=== PATIENT | male | born 1940 | race Caucasian/White ===

== ENCOUNTER → 2020-12-01 13:59 | Outpatient (CLI) | payer MEDICARE, OTHER, SELFPAY ==
--- NOTE | 2020-12-01 14:05 | DI.MRI.S_ITS ---
PROCEDURE: MR LUMBAR SPINE WO CON INDICATIONS: Spondylosis without myelopathy or radiculopathy TECHNIQUE: Noncontrast sagittal T1 spin echo and T2 fast echo, sagittal STIR, axial T1 and T2 fast spin echo through the lumbar spine. In cases with scoliosis, additional coronal T2 fast spin echo may be performed. COMPARISON: [facility], MR, MR LUMBAR SPINE WITHOUT CONTRAST, 02/11/2018, 17:14. [facility] Hana Sumner, RF, LUMBAR RHIZOTOMY, 10/05/2020, 16:00. [facility] [place], CR, XR LUMBAR SPINE 2 OR 3 VIEWS, 09/16/2020, 15:43. FINDINGS: Image quality: This examination is limited by involuntary motion artifact. Alignment and Curvature: There is [id number] dextroconvex lumbar scoliosis. Mild retrolisthesis is seen at L1-L2 and L2-L3, with minimal retrolisthesis seen at L3-L4. Bone Marrow: Marrow is of normal overall signal. No acute vertebral body compression fractures. Spinal Cord: Conus medullaris terminates at the L1 level. Visualized cord demonstrates normal signal and size. Paraspinous Soft Tissues: No paravertebral masses. T12-L1: The disc height and disc signal are relatively well preserved. Mild disc bulge is seen, which is eccentric to the left. There is mild left-sided and no significant right-sided neural foraminal narrowing seen. No significant central canal narrowing is seen. L1-L2: Mild loss of disc height is seen. Loss of disc signal is seen. Moderate generalized disc bulge is seen. Mild facet joint hypertrophy is seen. There is at least moderate bilateral neural foraminal narrowing seen, left worse than right. A mild degree of compression can be seen upon the exiting nerve roots. Mild central canal narrowing is seen. L2-L3: [id number] loss of disc height and disc signal can be seen. Moderate generalized disc bulge is seen. Mild facet joint hypertrophy is seen. At least moderate bilateral neural foraminal narrowing can be seen. Moderate central canal narrowing is seen. L3-L4: The disc height is well-preserved. Loss of disc signal is seen at this level. Moderate disc bulge is seen, with a central disc protrusion. Mild to moderate facet hypertrophy is seen at this level. There is moderate left-sided and moderate to severe right-sided neural foraminal narrowing seen. There is a degree of compression seen upon the exiting right L3 nerve root. Moderate central canal narrowing is seen. L4-L5: The disc height is well-preserved. Loss of disc signal is seen at this level. Moderate to prominent disc bulge is seen, which is eccentric to the right. There is moderate to prominent right-sided and moderate left-sided neural foraminal narrowing seen. There is moderate left-sided and moderate to severe right-sided neural foraminal narrowing seen. There is a degree of compression seen upon the exiting right L4 nerve root. Moderate to severe central canal narrowing is seen. L5-S1: Mild loss of disc height is seen. Loss of disc signal is seen. Moderate disc bulge is seen, which is eccentric to the right side. Posteriorly directed endplate osteophytes are seen on the right side, with an associated disc protrusion. Moderate facet joint hypertrophy is seen. There is moderate left-sided and moderate to severe right-sided neural foraminal narrowing seen. Moderate central canal narrowing is seen. IMPRESSION: Multiple levels of lumbar spine degenerative change are seen, which are overall mildly progressed compared to 2018. Kzof-hk-[id number] dextroconvex scoliosis. Dictated by: Vishal Bearden M.D. on 12/02/2020 at 10:36 Approved by: Vishal Bearden M.D. on 12/02/2020 at 10:43
== END ==
PROVIDERS: Referring Provider Physical Medicine & Rehabilitation; Visit Provider Physical Medicine & Rehabilitation
DX: M47.816 Spondylosis without myelopathy or radiculopathy, lumbar region (principal); M47.817 Spondylosis without myelopathy or radiculopathy, lumbosacral region; M41.86 Other forms of scoliosis, lumbar region
CPT/HCPCS: 72148

== ENCOUNTER 2024-11-25 04:37 | Emergency (ER) | payer MEDICARE, SELFPAY ==
[2024-11-25] VITALS (17 sets, daily range): BP systolic 82–107; BP diastolic 51–65; PULSE 61–69; RESP 17–35; TEMP 36.4; O2SAT 94–98; BMI 21.9
--- NOTE | 2024-11-25 04:40 | DI.RAD.S_ITS ---
PROCEDURE: XR CHEST 1V INDICATIONS: chest pain TECHNIQUE: One view of the chest was acquired. COMPARISON: None. FINDINGS: Surgical changes and devices: Prosthetic aortic valve is seen. Lungs and pleura: Small airspace opacity in right infrahilar region is seen. Left lung is clear. No pleural effusions or pneumothorax. Mediastinum: Tortuous thoracic aorta with aortic arch calcifications. Heart size is normal. Bones and chest wall: No suspicious bony lesions. Overlying soft tissues appear unremarkable. IMPRESSION: Finding is concerning for right infrahilar infiltrate. Clinical correlation and follow-up is recommended. No pleural effusion or pneumothorax. No discrepancies. Dictated by: Maurilio Bobby M.D. on 11/25/2024 at 8:08 Approved by: Maurilio Bobby M.D. on 11/25/2024 at 8:09
--- NOTE | 2024-11-25 04:41 | EKG_ITS ---
[place] [id number] [place] [id number] Test Date: 2024-11-25 Pat Name: MACKENZIE MORRISON Department: [facility] Room: Gender: Male Client Executive: MIROSLAVA Rogers : 1940 Requested By: Order Number: [id number] Reading MD: Mackenzie Arreaga MD Measurements Intervals [place] Rate: 67 P: 54 SC: 170 QRS: -54 QRSD: 130 T: 50 QT: 440 QTc: 464 Interpretive Statements Normal sinus rhythm Right bundle branch block Left anterior fascicular block Bifascicular block Possible Lateral infarct , age undetermined NO PRIOR TRACING Electronically Signed On 11-25-2024 6:47:31 PDT by Mackenzie Arreaga MD
--- NOTE | 2024-11-25 04:43 | ED.CHESTPAIN ---
HPI - Chest Pain <Maryse Boston DO - Last Filed: 12/01/24 08:18> General Chief Complaint: Chest Pain Stated Complaint: chest pain Time Seen by Provider: 11/25/24 04:40 History of Present Illness HPI narrative: Patient 84-year-old male history of acute coronary disease with stents hyperlipidemia hypertension, presenting today with chest pain. [facility] they got infected. He has no history of diabetes. This evening he woke up with pretty severe chest pain. Nonradiating denies any shortness of breath. EMS did give him aspirin 325 and 1 nitro prior to arrival. He reports he did have some improvement with nitroglycerin. He denies any fever chills nausea vomiting shortness of breath or abdominal pain. He he recently just cast foot and missing toes Related Data Allergies Allergy/AdvReac Type Severity Reaction Status Date / Time No Known Drug Allergies Allergy Verified 11/25/24 09:00 Review of Systems <Alexander White MD - Last Filed: 11/26/24 07:45> Review of Systems Narrative: GENERAL: Negative chills, fatigue, malaise, fever, sweats. HEENT: Negative sinus pain, ear pain, sore throat RESPIRATORY: Negative dyspnea, cough CARDIOVASCULAR: Positive chest pain, negative palpitations GASTROINTESTINAL: Negative vomiting, nausea, abdominal pain : Negative dysuria, frequency, hematuria MUSCULOSKELETAL: Negative muscle or bony pain SKIN: Negative rash, skin lesions NEUROLOGIC: Negative weakness, numbness ROS Unobtainable: All systems reviewed & are unremarkable except as noted in HPI and below Exam <Maryse Boston DO - Last Filed: 12/01/24 08:18> Initial Vital Signs Initial Vital Signs: Vital Signs Temperature 97.6 F 11/25/24 04:39 Pulse Rate 68 11/25/24 04:39 Respiratory Rate 17 11/25/24 04:39 Blood Pressure 101/65 11/25/24 04:39 Pulse Oximetry 96 11/25/24 04:39 Oxygen Delivery Method Room Air 11/25/24 04:39 GENERAL: Alert 84-year-old female HEENT: Head atraumatic,EOMI, pupils reactive, face symmetric, moist mucous membranes CARDIOVASCULAR: Regular rate and rhythm without murmurs, rubs or gallops. RESPIRATORY: Breath sounds equal bilaterally, no wheezes rales or rhonchi. ABDOMEN: Soft, nontender. Normoactive bowel sounds all 4 quadrants. No guarding or rebound. EXTREMITIES: Normal range of motion, no clubbing or edema. Neurovascularly intact NEUROLOGICAL: Alert and oriented x4.Normal gait and speech. C SKIN: Warm, dry, no laceration, no petechiae, no rashes or lesions. <Alexander White MD - Last Filed: 11/26/24 07:45> Initial Vital Signs Initial Vital Signs: Vital Signs Temperature 97.6 F 11/25/24 04:39 Pulse Rate 68 11/25/24 04:39 Respiratory Rate 17 11/25/24 04:39 Blood Pressure 101/65 11/25/24 04:39 Pulse Oximetry 96 11/25/24 04:39 Oxygen Delivery Method Room Air 11/25/24 04:39 Course <Maryse Boston DO - Last Filed: 12/01/24 08:18> Orders Ordered: Discontinued Medications Heparin Sodium (Porcine) (Heparin 5,000 Unit/Ml Vial) 4,000 unit 60 unit/kg (4000 unit) IV NOW ONE Stop: 11/25/24 08:25 Last Admin: 11/25/24 08:52 Dose: 4,000 unit Documented By: JALEN Sodium Chloride (Normal Saline 0.9%) 1,000 mls @ 1,000 mls/hr IV BOLUS ONE Stop: 11/25/24 07:01 Last Infusion: 11/25/24 07:06 Dose: Infused Documented By: Admin: 11/25/24 06:06 Dose: 1,000 mls/hr Documented By: Heparin Sodium/Dextrose (Heparin Drip) 25,000 unit in 500 mls @ 15.241 mls/hr IV CONT OSORIO; Protocol Last Titration: 11/25/24 10:30 Dose: 12 units/kg/hr, 15.241 mls/hr Documented By: ROBBI Co-signed By: JALEN(2) Admin: 11/25/24 08:53 Dose: 12 units/kg/hr, 15.241 mls/hr Documented By: JALEN Co-signed By: MPO Vital Signs Vital signs: Vital Signs - 8 hr 11/25/24 04:39 11/25/24 04:41 11/25/24 04:42 Temperature 97.6 F Pulse Rate 68 67 Respiratory Rate 17 Blood Pressure 101/65 99/59 L Pulse Oximetry 96 95 Oxygen Delivery Method Room Air 11/25/24 04:42 11/25/24 05:00 11/25/24 05:00 Temperature Pulse Rate 68 64 Respiratory Rate 28 H Blood Pressure 91/54 L Pulse Oximetry 94 97 Oxygen Delivery Method 11/25/24 05:25 11/25/24 05:25 11/25/24 05:30 Temperature Pulse Rate 64 Respiratory Rate 18 Blood Pressure 100/58 L 100/55 L Pulse Oximetry 96 Oxygen Delivery Method 11/25/24 05:30 11/25/24 06:00 11/25/24 06:00 Temperature Pulse Rate 63 61 Respiratory Rate 17 21 Blood Pressure 82/52 L Pulse Oximetry 96 96 Oxygen Delivery Method 11/25/24 06:01 11/25/24 06:01 11/25/24 06:30 Temperature Pulse Rate 69 Respiratory Rate 35 H Blood Pressure 90/53 L 100/55 L Pulse Oximetry 96 Oxygen Delivery Method 11/25/24 06:30 11/25/24 07:00 11/25/24 07:00 Temperature Pulse Rate 64 64 Respiratory Rate 22 20 Blood Pressure 94/53 L Pulse Oximetry 98 97 Oxygen Delivery Method 11/25/24 07:30 11/25/24 07:30 Temperature Pulse Rate 66 Respiratory Rate 17 Blood Pressure 102/51 L Pulse Oximetry 96 Oxygen Delivery Method <Alexander White MD - Last Filed: 11/26/24 07:45> Orders Ordered: Discontinued Medications Heparin Sodium (Porcine) (Heparin 5,000 Unit/Ml Vial) 4,000 unit 60 unit/kg (4000 unit) IV NOW ONE Stop: 11/25/24 08:25 Last Admin: 11/25/24 08:52 Dose: 4,000 unit Documented By: JALEN Sodium Chloride (Normal Saline 0.9%) 1,000 mls @ 1,000 mls/hr IV BOLUS ONE Stop: 11/25/24 07:01 Last Infusion: 11/25/24 07:06 Dose: Infused Documented By: Admin: 11/25/24 06:06 Dose: 1,000 mls/hr Documented By: Heparin Sodium/Dextrose (Heparin Drip) 25,000 unit in 500 mls @ 15.241 mls/hr IV CONT OSORIO; Protocol Last Titration: 11/25/24 10:30 Dose: 12 units/kg/hr, 15.241 mls/hr Documented By: ROBBI Co-signed By: JALEN(2) Admin: 11/25/24 08:53 Dose: 12 units/kg/hr, 15.241 mls/hr Documented By: JALEN Co-signed By: CECY Vital Signs Vital signs: Vital Signs - 8 hr 11/25/24 04:39 11/25/24 04:41 11/25/24 04:42 Temperature 97.6 F Pulse Rate 68 67 Respiratory Rate 17 Blood Pressure 101/65 99/59 L Pulse Oximetry 96 95 Oxygen Delivery Method Room Air 11/25/24 04:42 11/25/24 05:00 11/25/24 05:00 Temperature Pulse Rate 68 64 Respiratory Rate 28 H Blood Pressure 91/54 L Pulse Oximetry 94 97 Oxygen Delivery Method 11/25/24 05:25 11/25/24 05:25 11/25/24 05:30 Temperature Pulse Rate 64 Respiratory Rate 18 Blood Pressure 100/58 L 100/55 L Pulse Oximetry 96 Oxygen Delivery Method 11/25/24 05:30 11/25/24 06:00 11/25/24 06:00 Temperature Pulse Rate 63 61 Respiratory Rate 17 21 Blood Pressure 82/52 L Pulse Oximetry 96 96 Oxygen Delivery Method 11/25/24 06:01 11/25/24 06:01 11/25/24 06:30 Temperature Pulse Rate 69 Respiratory Rate 35 H Blood Pressure 90/53 L 100/55 L Pulse Oximetry 96 Oxygen Delivery Method 11/25/24 06:30 11/25/24 07:00 11/25/24 07:00 Temperature Pulse Rate 64 64 Respiratory Rate 22 20 Blood Pressure 94/53 L Pulse Oximetry 98 97 Oxygen Delivery Method 11/25/24 07:30 11/25/24 07:30 Temperature Pulse Rate 66 Respiratory Rate 17 Blood Pressure 102/51 L Pulse Oximetry 96 Oxygen Delivery Method MDM - Chest Pain <Maryse Boston, - Last Filed: 12/01/24 08:18> Lab Data 11/25/24 04:40 11/25/24 04:40 Labs: Lab Results 11/25/24 11/25/24 11/25/24 Range/Units 04:40 06:40 08:48 WBC 6.5 (4.5-11.0) X10^3/uL RBC 4.42 L (4.5-5.9) X10^6/uL Hgb 11.1 L (13.5-17.5) g/dL Hct 34.7 L (41-53) % MCV 78.4 L (80-100) fL MCH 25.2 L (26-34) PG MCHC 32.1 (30-36) % RDW 20.7 H (11.6-14.8) % Plt Count 504 H (150-400) X10^3/uL Neut % (Auto) 50.7 (50-75) % Lymph % (Auto) 32.2 (25-40) % [place] % (Auto) 13.5 (3-14) % Eos % (Auto) 2.5 (2-4) % Baso % (Auto) 1.1 (0-2) % Neut # (Auto) 3300 (2286-2559) /uL Lymph # (Auto) 2100 (0003-4576) /uL [place] # (Auto) 900 (0-900) /uL Eos # (Auto) 200 (0-450) /uL Baso # (Auto) 100 (0-100) /uL RBC Morphology See below Hypochromasia 1+ H Anisocytosis 1+ H Microcytosis 1+ H Ovalocytes 1+ H APTT 42 H (25.1-36.5) SECONDS Sodium 138 (137-145) mmol/L Potassium 3.9 (3.4-5.1) mmol/L Chloride 102 (98-107) mmol/L Carbon Dioxide 24 (22-32) mmol/L BUN 19 (9-20) mg/dL Creatinine 0.92 (0.66-1.25) mg/dL Estimated GFR > 60 (>60) mL/min BUN/Creatinine Ratio 20.7 (6-22) Glucose 99 (80-110) mg/dL Calcium 10.1 (8.4-10.2) mg/dL Total Bilirubin 0.4 (0.2-1.3) mg/dL AST 26 (17-59) IU/L ALT 20 (<50) IU/L Alkaline Phosphatase 125 (38-126) U/L Total Creatine Kinase 69 (55-170) U/L Troponin I < 0.012 0.110 H (0.01-0.034) ng/mL NT-Pro-B Natriuret Pep 617 H (<450) pg/mL Total Protein 8.3 H (6.3-8.2) g/dL Albumin 4.6 (3.5-5.0) g/dL Globulin 3.7 (1.7-4.1) g/dL Albumin/Globulin Ratio 1.2 (1.0-2.8) Lipase 150 (23-300) U/L ECG Data Attestation: I personally reviewed and interpreted this ECG as follows: Prior ECG tracings: not available for review Interpretation: Normal sinus rhythm rate 7 OR interval 170 QRS 130 QTC [address] changes or bundle-branch block noted no priors to compare MDM Narrative Medical decision making narrative: MDM CC: Chest pain Complicating co-morbidities: Coronary artery disease hypertension hyperlipidemia Data collected from: [facility] to be paper and patient Medical records reviewed: Patient was at , records have been requested Differential considered: Acute coronary syndrome dissection aneurysm pulmonary embolus Exam documented above, pertinent findings include: Pleasant 84-year-old male appears to not feel any sort of discuss he has no diaphoresis breath sounds are clear cast is noted on left foot Lab Test results independently reviewed as above. Pertinent findings: No leukocytosis WBC 6.5 hemoglobin 11.1 hematocrit 347 Electrolytes within normal limits Troponin negative BNP 617 Independently reviewed EKG as above Sinus rhythm right bundle kalin no ischemia Imaging studies independently reviewed: Chest x-ray Consultations: [ ] Treatments: IV fluids Re-evaluations: Patient reports the after nitroglycerin with EMS his chest pain is a dull ache. We will monitoring his blood pressure decreases he is resting comfortably does not appear to be in any sort of severe pain. Discussion: Patient 84-year-old male history of coronary artery disease recent hospital stay at [facility] for toe infection and amputation. Presents today with increasing crushing chest pain. Nonradiating and completely resolved by the time he got here. Received nitro and aspirin prior to arrival. Blood pressure was noted to drop initially in the 90s came up to the 100s and then went down to the 80s. 1 L normal saline was given. Blood work is overall reassuring negative troponin does not appear fluid overloaded clinically. Patient signed out to Dr. White, awaiting repeat troponin and EKGs <Alexander White MD - Last Filed: 11/26/24 07:45> Lab Data Labs: Lab Results 11/25/24 11/25/24 11/25/24 Range/Units 04:40 06:40 08:48 WBC 6.5 (4.5-11.0) X10^3/uL RBC 4.42 L (4.5-5.9) X10^6/uL Hgb 11.1 L (13.5-17.5) g/dL Hct 34.7 L (41-53) % MCV 78.4 L (80-100) fL MCH 25.2 L (26-34) PG MCHC 32.1 (30-36) % RDW 20.7 H (11.6-14.8) % Plt Count 504 H (150-400) X10^3/uL Neut % (Auto) 50.7 (50-75) % Lymph % (Auto) 32.2 (25-40) % [place] % (Auto) 13.5 (3-14) % Eos % (Auto) 2.5 (2-4) % Baso % (Auto) 1.1 (0-2) % Neut # (Auto) 3300 (1930-1515) /uL Lymph # (Auto) 2100 (3790-3233) /uL [place] # (Auto) 900 (0-900) /uL Eos # (Auto) 200 (0-450) /uL Baso # (Auto) 100 (0-100) /uL RBC Morphology See below Hypochromasia 1+ H Anisocytosis 1+ H Microcytosis 1+ H Ovalocytes 1+ H APTT 42 H (25.1-36.5) SECONDS Sodium 138 (137-145) mmol/L Potassium 3.9 (3.4-5.1) mmol/L Chloride 102 (98-107) mmol/L Carbon Dioxide 24 (22-32) mmol/L BUN 19 (9-20) mg/dL Creatinine 0.92 (0.66-1.25) mg/dL Estimated GFR > 60 (>60) mL/min BUN/Creatinine Ratio 20.7 (6-22) Glucose 99 (80-110) mg/dL Calcium 10.1 (8.4-10.2) mg/dL Total Bilirubin 0.4 (0.2-1.3) mg/dL AST 26 (17-59) IU/L ALT 20 (<50) IU/L Alkaline Phosphatase 125 (38-126) U/L Total Creatine Kinase 69 (55-170) U/L Troponin I < 0.012 0.110 H (0.01-0.034) ng/mL NT-Pro-B Natriuret Pep 617 H (<450) pg/mL Total Protein 8.3 H (6.3-8.2) g/dL Albumin 4.6 (3.5-5.0) g/dL Globulin 3.7 (1.7-4.1) g/dL Albumin/Globulin Ratio 1.2 (1.0-2.8) Lipase 150 (23-300) U/L Imaging Data Chest x-ray: Radiologist's Impression: [address] [address] XRay Report Signed Patient: MACKENZIE MORRISON MR#: [id number] : 1940 Acct:[id number] Age/Sex: 84 / M Date of Service: 11/25/24 Loc: ED Accession Number: [id number] Procedure: XR chest 1V Ordering Provider: Maryse Boston D.O. PROCEDURE: XR CHEST 1V INDICATIONS: chest pain TECHNIQUE: One view of the chest was acquired. COMPARISON: None. FINDINGS: Surgical changes and devices: Prosthetic aortic valve is seen. Lungs and pleura: Small airspace opacity in right infrahilar region is seen. Left lung is clear. No pleural effusions or pneumothorax. Mediastinum: Tortuous thoracic aorta with aortic arch calcifications. Heart size is normal. Bones and chest wall: No suspicious bony lesions. Overlying soft tissues appear unremarkable. IMPRESSION: Finding is concerning for right infrahilar infiltrate. Clinical correlation and follow-up is recommended. No pleural effusion or pneumothorax. No discrepancies. Dictated by: Maurilio Bobby M.D. on 11/25/2024 at 8:08 Approved by: Maurilio Bobby M.D. on 11/25/2024 at 8:09 MDM Narrative Medical decision making narrative: MDM CC: Chest pain Complicating co-morbidities: Coronary artery disease hypertension hyperlipidemia Data collected from: [facility] to be paper and patient Medical records reviewed: Patient was at , records have been requested Differential considered: Acute coronary syndrome dissection aneurysm pulmonary embolus Exam documented above, pertinent findings include: Pleasant 84-year-old male appears to not feel any sort of discuss he has no diaphoresis breath sounds are clear cast is noted on left foot Lab Test results independently reviewed as above. Pertinent findings: No leukocytosis WBC 6.5 hemoglobin 11.1 hematocrit 347 Electrolytes within normal limits Troponin negative , repeat troponin 0.1 BNP 617 Independently reviewed EKG as above Sinus rhythm right bundle kalin no ischemia Imaging studies independently reviewed: Chest x-ray possible right infiltrate Consultations: See below Treatments: IV fluids Re-evaluations: Patient reports the after nitroglycerin with EMS his chest pain is a dull ache. We will monitoring his blood pressure decreases he is resting comfortably does not appear to be in any sort of severe pain. Discussion: Patient 84-year-old male history of coronary artery disease recent hospital stay at [facility] for toe infection and amputation. Presents today with increasing crushing chest pain. Nonradiating and completely resolved by the time he got here. Received nitro and aspirin prior to arrival. Blood pressure was noted to drop initially in the 90s came up to the 100s and then went down to the 80s. 1 L normal saline was given. Blood work is overall reassuring negative troponin does not appear fluid overloaded clinically. Patient signed out to Dr. White, awaiting repeat troponin and EKGs November 25, 2024 at 7:00 a.m.. Cindy: sign out from Dr Boston , 2nd troponin is pending. 7:45 a.m.. Spoke with patient, also spoke with Isabella, by phone. Will need transfer for higher level of care. Non-STEMI finding here. Patient in no distress. No chest pain at this time. 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 He went to rehab and fell and broke his hip and return back to [facility] for the hip fracture. He was discharged August 28, 2024 from rehab. He has been home since then. However November 08 he had 3 toes on the left amputated in [place], by Dr. [facility]. He currently has a cast on. 7:50 a.m.. Second troponin is elevated. However will hold on heparin as I am trying to contact Dr. Hastings, surgeon for any contraindications for heparin. 8:[address] Hastings orthopedic with patient care, he did surgery on patient 18 days ago. Three toes removed. Patient can have heparin. Patient had osteomyelitis requiring amputation. 8:30 a.m.. Spoke with Raya scanlon hospitalist, dr cha, she will accept patient. Chest x-ray reviewed, patient has not had any cough cold congestion fever chills. No dyspnea. Likely not pneumonia. No antibiotics at this time. Critical Care Time <Maryse Boston DO - Last Filed: 12/01/24 08:18> Critical Care Time Total Critical Care Time: 32 Attestation: Critical Care Time minutes:32 Critical care time is separate from other billable procedures. This critical care time includes consultation with family and other consulting doctors, review of records, and interpretation of data from labs, EKGs, imaging, etc. <Alexander White MD - Last Filed: 11/26/24 07:45> Critical Care Time Attestation: Critical Care Time minutes: Critical care time is separate from other billable procedures. This critical care time includes consultation with family and other consulting doctors, review of records, and interpretation of data from labs, EKGs, imaging, etc. Discharge Plan Departure Patient Disposition: [facility] Clinical Impression: Non-ST elevated myocardial infarction (non-STEMI)
[2024-11-25 04:51] LABS: Add Manual Diff / Slide Review NO; Basophils Absolute Auto 100 /uL (0-100); Basophils Percent Auto 1.1 % (0-2); Eosinophils Absolute Auto 200 /uL (0-450); Eosinophils Percent Auto 2.5 % (2-4); Hematocrit 34.7 % (41-53); Hemoglobin 11.1 g/dL (13.5-17.5); Lymphocytes Absolute Auto 2100 /uL (1100-4500); Lymphocytes Percent Auto 32.2 % (25-40); Mean Corpuscular HGB Conc 32.1 % (30-36); Mean Corpuscular Hemoglobin 25.2 PG (26-34); Mean Corpuscular Volume 78.4 fL (80-100); Monocytes Absolute Auto 900 /uL (0-900); Monocytes Percent Auto 13.5 % (3-14); Neutrophils Absolute Auto 3300 /uL (1500-7000); Neutrophils Percent Auto 50.7 % (50-75); Platelet Count 504 X10^3/uL (150-400); Red Blood Cell Count 4.42 X10^6/uL (4.5-5.9); Red Cell Distribution Width 20.7 % (11.6-14.8); White Blood Cell Count 6.5 X10^3/uL (4.5-11.0)
[2024-11-25 04:58] LABS: Alanine Aminotransferase 20 IU/L (<50); Albumin 4.6 g/dL (3.5-5.0); Albumin Globulin Ratio 1.2 (1.0-2.8); Alkaline Phosphatase 125 U/L (38-126); Aspartate Aminotransferase 26 IU/L (17-59); BUN Creatinine Ratio 20.7 (6-22); Bilirubin Total 0.4 mg/dL (0.2-1.3); Blood Urea Nitrogen 19 mg/dL (9-20); Calcium 10.1 mg/dL (8.4-10.2); Carbon Dioxide 24 mmol/L (22-32); Chloride 102 mmol/L (98-107); Creatine Kinase 69 U/L (55-170); Estimated Glomerular Filt Rate > 60 mL/min (>60); Globulin 3.7 g/dL (1.7-4.1); Glucose 99 mg/dL (80-110); HEMOLYSIS < 15 (0-50); Lipase 150 U/L (23-300); Potassium 3.9 mmol/L (3.4-5.1); Sodium 138 mmol/L (137-145); Total Protein 8.3 g/dL (6.3-8.2)
[2024-11-25 05:04] LABS: Anisocytosis 1+; Hypochromasia 1+; Microcytosis 1+; Ovalocytes 1+
[2024-11-25 05:10] LABS: Troponin I < 0.012 ng/mL (0.01-0.034)
[2024-11-25 05:45] LABS: NT-proBNP (BNP-Adult 18+) 617 pg/mL (<450)
[2024-11-25] MEDS: SODIUM CHLORIDE 0.9% 1,000 ML 1000 ML IV (06:06)
[2024-11-25] MEDS: HEPARIN 5,000 UNIT/ML VIAL 4000 UNIT IV (08:52)
[2024-11-25] MEDS: HEPARIN DRIP 25,000 UNIT/500 ML IV.SOLN 15.241 UNIT IV (08:53)
[2024-11-25 09:24] LABS: PTT Partial Thromboplastin Tim 42 SECONDS (25.1-36.5)
== END 2024-11-25 10:00 | disposition short-term general hospital (02) ==
PROVIDERS: Emergency Medicine; Emergency Provider Emergency Medicine
DX: I21.4 Non-ST elevation (NSTEMI) myocardial infarction (principal); Z86.79 Personal history of other diseases of the circulatory system; Z95.5 Presence of coronary angioplasty implant and graft
CPT/HCPCS: 36415; 71045; 80053; 82550; 83690; 83880; 84484; 85025; 85730; 93005; 93010; 96361; 96365; 96366; 96375; 99284; 99291; J1644